=== PATIENT | male | born 1995 | race Caucasian/White ===

== ENCOUNTER 2018-05-12 13:49 | Emergency (ER) | payer BC, MEDICAID ==
[2018-05-12 14:06] VITALS: BP 125/57
[2018-05-12] MEDS ORDERED: ONDANSETRON ODT 4 MG TAB (6 TAB/ER DISP) PO PRN (14:50)
[2018-05-12] MEDS ORDERED: ONDANSETRON 4 MG TAB.RAPDIS PO ONE (14:50)
--- NOTE | 2018-05-12 14:52 | ER Document Report ---
ED General - General Chief Complaint: Vomiting Stated Complaint: VOMITING Time Seen by Provider: 05/12/18 14:45 Notes: Patient is a 22-year-old male that presents to the emergency department for chief complaint of nausea, vomiting and diarrhea. Patient reports that the symptoms started last night around 8 PM, is had several episodes of nausea and vomiting, this morning he was having mainly dry heaving, not able to keep much down. He said he has also had watery diarrhea. Vomiting has been nonbloody as well. His abdominal cramping, but denies having any specific abdominal pain, generalized cramping. He denies any fevers, chills, night sweats, sick contacts , consumption of undercooked or raw foods. He also denies having any chest pain , shortness of breath, cough, dysuria or hematuria. Past Medical History: Denies chronic medical conditions Past Surgical History: [place] tooth extraction Social History: Admits to smoking cigarettes, denies alcohol or drug use. Family History: Reviewed and noncontributory for presenting illness Allergies: Reviewed, see documented allergy list. REVIEW OF SYSTEMS: Other than noted above, the 12 point review of systems was reviewed with the patient and were negative, all pertinent findings are included in the HPI. PHYSICAL EXAMINATION: Vital signs reviewed, nursing noted reviewed. GENERAL: Well-appearing, well-nourished and in no acute distress. HEAD: Atraumatic, normocephalic. EYES: Eyes appear normal, extraocular movements intact, sclera anicteric, conjunctiva are normal. ENT: nares patent, oropharynx clear without exudates. Moist mucous membranes. NECK: Normal range of motion, supple without lymphadenopathy LUNGS: Breath sounds clear to auscultation bilaterally and equal. No wheezes rales or rhonchi. HEART: Regular rate and rhythm without murmurs ABDOMEN: Soft, mild discomfort with palpation in the upper quadrants, worse in the left compared to the right, normoactive bowel sounds. No rebound, guarding , or rigidity. No masses appreciated. EXTREMITIES: Nontender, good range of motion, no pitting or edema. NEUROLOGICAL: No focal neurological deficits. Moves all extremities spontaneously Motor and sensory grossly intact on exam. PSYCH: Normal mood, normal affect. SKIN: Warm, Dry, normal turgor, no rashes or lesions noted on exposed skin TRAVEL OUTSIDE OF THE [place] IN LAST 30 DAYS: No - Related Data Allergies/Adverse Reactions: No Known Allergies Allergy (Unverified 05/12/18 14:44) Past Medical History - Social History Smoking Status: Current Every Day Smoker Family History: Reviewed & Not Pertinent Patient has suicidal ideation: No Patient has homicidal ideation: No Renal/ Medical History: Denies: Hx Peritoneal Dialysis - Immunizations Immunizations up to date: Yes Hx Diphtheria, Pertussis, Tetanus Vaccination: Yes Physical Exam - Vital signs Vitals: Temp Pulse Resp BP Pulse Ox 98.9 F 56 L 16 125/57 L 98 05/12/18 14:03 05/12/18 14:03 05/12/18 14:03 05/12/18 14:03 05/12/18 14:03 Course - Re-evaluation Re-evalutation: Patient seen and examined vital signs reviewed. Patient was evaluated and treated as appropriate for the patient's presenting symptoms and complaint, with consideration of any critical or life threatening conditions that may be associated with their obtained history and exam as noted above. Patient was treated with p.o. Zofran 8 mg in the ED The patient was re-evaluated and was improved Evaluation was most consistent with nausea, vomiting and diarrhea, most likely viral gastroenteritis, patient advised if his symptoms worsen to return to the ED, he is given a prescription dispense from the ED of 6 tablets of Zofran 4 mg ODT. Plan of care was discussed with the patient at this point, after careful consideration I feel that that patient can be discharged from the emergency department, the patient was educated treatments and reasons to return to the emergency department based on their presumed diagnosis as noted above, they were advised to followup with a primary care physician in 2-3 days. Patient was agreeable to plan of care. *Note is created using voice recognition software and may contain spelling, syntax or grammatical errors. - Vital Signs Vital signs: Temp Pulse Resp BP Pulse Ox 98.9 F 56 L 16 125/57 L 98 05/12/18 14:03 05/12/18 14:03 05/12/18 14:03 05/12/18 14:03 05/12/18 14:03 Discharge - Discharge Clinical Impression: Nausea and vomiting Qualifiers: Vomiting type: unspecified Vomiting Intractability: non-intractable Qualified Code(s): R11.2 - Nausea with vomiting, unspecified Diarrhea Qualifiers: Diarrhea type: unspecified type Qualified Code(s): R19.7 - Diarrhea, unspecified Condition: Stable Disposition: HOME, SELF-CARE Instructions: Diarrhea, Nonspecific ([facility]), Vomiting ([facility]) Additional Instructions: Continue to attempt to hydrate yourself at home, take the medication as directed , you can take 1 of these tablets every 6-8 hours as needed for nausea and vomiting, if you feel that you are getting dehydrated, or have decreased urination as a result, do not hesitate to return to the emergency department. Referrals: KWASI ART MD [ACTIVE STAFF] - Follow up in 3-5 days (or your primary care. )
== END 2018-05-12 14:53 | disposition home or self-care (01) ==
LOC: ER 13:49
DX: R11.2 Nausea with vomiting, unspecified (principal); R19.7 Diarrhea, unspecified; R10.84 Generalized abdominal pain; F17.210 Nicotine dependence, cigarettes, uncomplicated
CPT/HCPCS: 99284; S0119